=== PATIENT | male | born 1985 | race African-American/Black ===

== ENCOUNTER 2018-06-17 23:47 | Emergency (ER) | payer OTHER ==
[2018-06-18] MEDS ORDERED: LEVETIRACETAM 1000 MG (PMX) 100 ML IVPB (00:30)
[2018-06-18 01:11] LABS: ADD MAN DIFF? NO
[2018-06-18 01:13] LABS: BASOPHIL # 0.1 10^3/ul (0.0-0.1); EOSINOPHILS # 0.1 10^3/ul (0.0-0.5); EOSINOPHILS % 1.2 % (0.0-7.0); HEMATOCRIT 31.9 % (42.0-52.0); HEMOGLOBIN 10.3 g/dl (14.0-18.0); LYMPHOCYTES % 40.3 % (15.0-51.0); MEAN CORPUSCULAR HGB CONC 32.3 g/dl (32.0-37.0); MEAN CORPUSCULAR VOLUME 77.4 fl (82.0-101.0); MONOCYTE # 0.2 10^3/ul (0.3-0.9); MONOCYTES % 3.7 % (0.0-11.0); NEUTROPHIL # 2.6 10^3/ul (1.6-7.5); NEUTROPHILS % 53.6 % (39.0-77.0); PLATELET COUNT 345 10^3/UL (140-415); RED BLOOD COUNT 4.12 10^6/ul (4.70-6.10); RED CELL DISTRIBUTION WIDTH 18.7 % (11.5-14.5)
[2018-06-18 01:13] LABS: WHITE BLOOD COUNT 4.9 10^3/ul (4.8-10.8)
[2018-06-18] MEDS: OXYBUTYNIN (XL) 5 MG TAB PO (01:44)
[2018-06-18 01:45] LABS: ALANINE AMINOTRANSFERASE 19 IU/L (13-69); ALBUMIN 4.5 g/dl (3.3-4.9); ALBUMIN/GLOBULIN RATIO 1.25; ALKALINE PHOSPHATASE 63 IU/L (42-121); ANION GAP 15 (8-16); ASPARTATE AMINO TRANSFERASE 42 IU/L (15-46); BILIRUBIN,INDIRECT 0.5 mg/dl (0-1.1); BILIRUBIN,TOTAL 0.5 mg/dl (0.2-1.3); BLOOD UREA NITROGEN 8 mg/dl (7-20); CALCIUM 8.7 mg/dl (8.4-10.2); CARBON DIOXIDE 24 mmol/L (21-31); CHLORIDE 102 mmol/L (97-110); CREATININE 0.53 mg/dl (0.61-1.24); GLUCOSE 89 mg/dl (70-220); LIPASE 134 U/L (23-300); POTASSIUM 4.2 mmol/L (3.5-5.1); SODIUM 137 mmol/L (135-144); TOTAL PROTEIN 8.1 g/dl (6.1-8.1)
[2018-06-18] MEDS: SOD CHLORIDE 0.9% 1,000 ML IV (01:57)
[2018-06-18] MEDS: LEVETIRACETAM 500 MG TAB PO (01:57)
[2018-06-18 02:21] LABS: URINE BLOOD (Dip) POC Trace-lysed (NEGATIVE); URINE GLUCOSE (Dip) POC Negative (NEGATIVE); URINE KETONES (Dip) POC Negative (NEGATIVE); URINE LEUKOCYTE EST (Dip) POC 1+ (NEGATIVE); URINE NITRITE (Dip) POC Positive (NEGATIVE); URINE TOTAL PROTEIN POC Trace (NEGATIVE)
[2018-06-18 02:50] LABS: AMPHETAMINE/METHAMPHETAMINE Negative (NEGATIVE); BARBITURATES Negative (NEGATIVE); BENZODIAZEPINES Negative (NEGATIVE); CANNABINOIDS Negative (NEGATIVE); COCAINE Negative (NEGATIVE); OPIATES Negative (NEGATIVE)
[2018-06-18] MEDS: NITROFURANTOIN (SR) 100 MG CAP PO (05:12)
== END 2018-06-18 07:10 | disposition home or self-care (01) ==
LOC: E/R 23:47
DX: G40.909 Epilepsy, unspecified, not intractable, without status epilepticus (principal); N39.0 Urinary tract infection, site not specified; F10.10 Alcohol abuse, uncomplicated; D64.9 Anemia, unspecified; R40.2142 Coma scale, eyes open, spontaneous, at arrival to emergency department; R40.2252 Coma scale, best verbal response, oriented, at arrival to emergency department; R40.2362 Coma scale, best motor response, obeys commands, at arrival to emergency department
CPT/HCPCS: 36415; 71045; 80053; 80307; 81003; 83690; 85025; 87086; 99284-25

== ENCOUNTER 2019-07-14 20:57 | Inpatient (IN) | payer OTHER ==
[2019-07-14 21:54] LABS: ADD MAN DIFF? NO
[2019-07-14 21:57] LABS: BASOPHIL # 0.1 10^3/ul (0.0-0.1); BASOPHILS % 0.7 % (0.0-2.0); EOSINOPHILS # 0.1 10^3/ul (0.0-0.5); EOSINOPHILS % 0.6 % (0.0-7.0); HEMATOCRIT 32.7 % (42.0-52.0); HEMOGLOBIN 10.5 g/dl (14.0-18.0); LYMPHOCYTES # 1.6 10^3/ul (0.8-2.9); LYMPHOCYTES % 18.7 % (15.0-51.0); MEAN CORPUSCULAR HEMOGLOBIN 27.9 pg (29.0-33.0); MEAN CORPUSCULAR HGB CONC 32.1 g/dl (32.0-37.0); MEAN CORPUSCULAR VOLUME 86.7 fl (82.0-101.0); MEAN PLATELET VOLUME 9.5 fl (7.4-10.4); MONOCYTE # 0.6 10^3/ul (0.3-0.9); MONOCYTES % 6.5 % (0.0-11.0); NEUTROPHIL # 6.2 10^3/ul (1.6-7.5); NEUTROPHILS % 72.8 % (39.0-77.0); PLATELET COUNT 321 10^3/UL (140-415); RED BLOOD COUNT 3.77 10^6/ul (4.70-6.10); RED CELL DISTRIBUTION WIDTH 18.5 % (11.5-14.5)
[2019-07-14 21:57] LABS: WHITE BLOOD COUNT 8.5 10^3/ul (4.8-10.8)
[2019-07-14 21:58] LABS: ADD UMIC YES; UR ASCORBIC ACID NEGATIVE (NEGATIVE); UR BACTERIA MODERATE /HPF (NONE SEEN); UR BILIRUBIN (Dip) NEGATIVE (NEGATIVE); UR BLOOD (Dip) 2+ mg/dL (NEGATIVE); UR CLARITY CLOUDY (CLEAR); UR COLOR YELLOW (YELLOW); UR GLUCOSE (Dip) NEGATIVE (NEGATIVE); UR KETONES (Dip) NEGATIVE (NEGATIVE); UR LEUKOCYTE ESTERASE (Dip) 3+ Leu/ul (NEGATIVE); UR NITRITE (Dip) POSITIVE (NEGATIVE); UR RBC 4 /HPF (0-5); UR SPECIFIC GRAVITY (Dip) 1.004 (1.003-1.030); UR SQUAMOUS EPITHELIAL CELL FEW /HPF (FEW); UR TOTAL PROTEIN (Dip) 1+ mg/dl (NEGATIVE); UR UROBILINOGEN (Dip) NEGATIVE (NEGATIVE); UR WBC 29 /HPF (0-5)
[2019-07-14] MEDS: CEFEPIME 2GM/50 ML (PMX) 50 ML IVPB (22:11)
[2019-07-14] MEDS: SODIUM CHLORIDE 0.9% 1L BAG IV* (22:11)
[2019-07-14 22:16] LABS: ALANINE AMINOTRANSFERASE 39 IU/L (13-69); ALBUMIN/GLOBULIN RATIO 1.21; ALKALINE PHOSPHATASE 73 IU/L (42-121); ANION GAP 16 (5-13); ASPARTATE AMINO TRANSFERASE 25 IU/L (15-46); BILIRUBIN,INDIRECT 0.7 mg/dl (0-1.1); BILIRUBIN,TOTAL 0.7 mg/dl (0.2-1.3); BLOOD UREA NITROGEN 10 mg/dl (7-20); CALCIUM 9.1 mg/dl (8.4-10.2); CARBON DIOXIDE 20 mmol/L (21-31); CHLORIDE 97 mmol/L (97-110); CREATININE 0.61 mg/dl (0.61-1.24); Estimated GFR > 60 mL/min (>60); GLUCOSE 88 mg/dl (70-220); SODIUM 133 mmol/L (135-144); TOTAL PROTEIN 7.3 g/dl (6.1-8.1)
[2019-07-14 22:19] LABS: POTASSIUM 2.8 mmol/L (3.5-5.1)
[2019-07-14 22:27] LABS: TROPONIN-I < 0.012 ng/ml (0.000-0.120)
[2019-07-14 22:30] LABS: INR 1.15; PROTIME 14.8 Sec (11.9-14.9); PT RATIO 1.2
[2019-07-14] MEDS ORDERED: ONDANSETRON 4 MG INJ IV ×2 (22:30→23:00)
[2019-07-14] MEDS ORDERED: ACETAMINOPHEN 325 MG TAB PO (22:30)
[2019-07-14 22:31] LABS: PARTIAL THROMBOPLASTIN TIME 44.4 Sec (23.0-35.0)
[2019-07-14] MEDS: POTASSIUM CHLORIDE (SR) 20 MEQ TAB PO (22:32)
[2019-07-14] MEDS: ONDANSETRON (ODT) 4 MG TAB ODT (22:33)
[2019-07-14] MEDS: HYDROCODONE/APAP (10/325) TAB PO (22:33)
[2019-07-14] MEDS: VANCOMYCIN 1 GM (PMX) 250 ML IVPB (22:52)
[2019-07-14] MEDS ORDERED: BISACODYL (EC) 5 MG TAB PO (23:00)
[2019-07-14] MEDS ORDERED: HYDROmorphONE 0.5 MG/0.5 ML SYG IV (23:00)
[2019-07-14] MEDS ORDERED: DOCUSATE SODIUM 100 MG CAP PO (23:00)
[2019-07-14] MEDS ORDERED: NACL 0.9% 3 ML SYG IV (23:00)
[2019-07-14] MEDS ORDERED: VANCOMYCIN IV PER PHARMACY XX (23:00)
[2019-07-14] MEDS: morphine 2 MG INJ IV (23:58)
[2019-07-15] MEDS: MAGNESIUM SULFATE 2 GM/50 ML 50 ML IVPB (01:03)
[2019-07-15] MEDS: FUROSEMIDE 40 MG INJ IV (01:35)
[2019-07-15] MEDS: HYDROCODONE/APAP (5/325) TAB PO ×3 (02:52→17:44)
[2019-07-15] MEDS: VANCOMYCIN 500 MG (PMX) 100 ML IVPB (03:23)
[2019-07-15] MEDS: ENOXAPARIN 100 MG/ML SYG SC ×3 (03:24→20:54)
[2019-07-15] MEDS: SOD CHLORIDE 0.9% 500 ML IV (03:28)
[2019-07-15] MEDS: morphine 2 MG INJ IV ×4 (04:15→16:25)
[2019-07-15 05:22] LABS: ADD MAN DIFF? NO
[2019-07-15 05:40] LABS: WHITE BLOOD COUNT 6.4 10^3/ul (4.8-10.8)
[2019-07-15 05:40] LABS: BASOPHILS % 0.6 % (0.0-2.0); EOSINOPHILS # 0.1 10^3/ul (0.0-0.5); EOSINOPHILS % 0.8 % (0.0-7.0); HEMOGLOBIN 9.4 g/dl (14.0-18.0); LYMPHOCYTES # 1.3 10^3/ul (0.8-2.9); LYMPHOCYTES % 19.9 % (15.0-51.0); MEAN CORPUSCULAR HEMOGLOBIN 28.2 pg (29.0-33.0); MEAN CORPUSCULAR HGB CONC 32.4 g/dl (32.0-37.0); MEAN CORPUSCULAR VOLUME 87.1 fl (82.0-101.0); MEAN PLATELET VOLUME 10.5 fl (7.4-10.4); MONOCYTE # 0.5 10^3/ul (0.3-0.9); NEUTROPHIL # 4.5 10^3/ul (1.6-7.5); NEUTROPHILS % 71.1 % (39.0-77.0); PLATELET COUNT 224 10^3/UL (140-415); RED BLOOD COUNT 3.33 10^6/ul (4.70-6.10); RED CELL DISTRIBUTION WIDTH 18.5 % (11.5-14.5)
[2019-07-15 05:46] LABS: IRON 28 ug/dl (35-150)
[2019-07-15 05:46] LABS: LACTIC ACID 1.2 mmol/L (0.5-2.0)
[2019-07-15 05:54] LABS: ALANINE AMINOTRANSFERASE 35 IU/L (13-69); ALBUMIN 3.1 g/dl (3.3-4.9); ALBUMIN/GLOBULIN RATIO 1.06; ALKALINE PHOSPHATASE 57 IU/L (42-121); ANION GAP 7 (5-13); ASPARTATE AMINO TRANSFERASE 28 IU/L (15-46); BILIRUBIN,INDIRECT 0.7 mg/dl (0-1.1); BILIRUBIN,TOTAL 0.7 mg/dl (0.2-1.3); BLOOD UREA NITROGEN 10 mg/dl (7-20); CARBON DIOXIDE 22 mmol/L (21-31); CHLORIDE 106 mmol/L (97-110); CREATININE 0.42 mg/dl (0.61-1.24); Estimated GFR > 60 mL/min (>60); GLUCOSE 101 mg/dl (70-220); POTASSIUM 3.8 mmol/L (3.5-5.1); SODIUM 135 mmol/L (135-144)
[2019-07-15 05:55] LABS: % IRON SATURATION 10 % SAT (22-52); TOTAL IRON BINDING CAPACITY 287 ug/dl (241-421)
[2019-07-15 06:53] LABS: FERRITIN 68.1 ng/ml (17.9-464.0)
[2019-07-15] MEDS: MEROPENEM 1 GM/50ML(PMX) 50 ML IVPB ×2 (08:27→21:00)
[2019-07-15] MEDS: VANCOMYCIN 1 GM 250 ML IVPB ×2 (09:29→16:25)
[2019-07-15] MEDS: OXYBUTYNIN 5 MG TAB PO ×2 (16:23→20:53)
[2019-07-15] MEDS: BALSAM PERU/CASTOR OIL 60 GM TUBE TOP (20:55)
[2019-07-15] MEDS: LEVOFLOXACIN 750 MG TABLET PO (22:10)
[2019-07-16] MEDS: HYDROCODONE/APAP (5/325) TAB PO ×4 (00:06→21:03)
[2019-07-16] MEDS: VANCOMYCIN 1 GM 250 ML IVPB ×2 (01:00→09:00)
[2019-07-16] MEDS: MEROPENEM 1 GM/50ML(PMX) 50 ML IVPB ×2 (09:00→20:50)
[2019-07-16] MEDS: OXYBUTYNIN 5 MG TAB PO ×2 (09:03→21:03)
[2019-07-16] MEDS: BALSAM PERU/CASTOR OIL 60 GM TUBE TOP ×2 (09:06→21:00)
[2019-07-16] MEDS: ENOXAPARIN 100 MG/ML SYG SC ×2 (09:09→20:50)
[2019-07-16] MEDS: ACETAMINOPHEN 325 MG TAB PO (11:33)
[2019-07-16] MEDS: morphine 2 MG INJ IV ×2 (17:31→21:56)
[2019-07-17] MEDS: morphine 2 MG INJ IV ×5 (02:00→21:43)
[2019-07-17] MEDS: HYDROCODONE/APAP (5/325) TAB PO ×3 (05:44→20:07)
[2019-07-17 05:45] LABS: ADD MAN DIFF? NO
[2019-07-17 05:57] LABS: BASOPHILS % 0.8 % (0.0-2.0); EOSINOPHILS # 0.1 10^3/ul (0.0-0.5); EOSINOPHILS % 1.3 % (0.0-7.0); HEMATOCRIT 33.4 % (42.0-52.0); HEMOGLOBIN 10.4 g/dl (14.0-18.0); LYMPHOCYTES # 1.6 10^3/ul (0.8-2.9); LYMPHOCYTES % 29.1 % (15.0-51.0); MEAN CORPUSCULAR HEMOGLOBIN 27.7 pg (29.0-33.0); MEAN CORPUSCULAR HGB CONC 31.1 g/dl (32.0-37.0); MEAN CORPUSCULAR VOLUME 88.8 fl (82.0-101.0); MEAN PLATELET VOLUME 10.3 fl (7.4-10.4); MONOCYTE # 0.5 10^3/ul (0.3-0.9); MONOCYTES % 9.2 % (0.0-11.0); NEUTROPHIL # 3.1 10^3/ul (1.6-7.5); NEUTROPHILS % 58.5 % (39.0-77.0); PLATELET COUNT 275 10^3/UL (140-415); RED BLOOD COUNT 3.76 10^6/ul (4.70-6.10); RED CELL DISTRIBUTION WIDTH 19.8 % (11.5-14.5)
[2019-07-17 05:57] LABS: WHITE BLOOD COUNT 5.3 10^3/ul (4.8-10.8)
[2019-07-17 06:30] LABS: ANION GAP 7 (5-13); BLOOD UREA NITROGEN 14 mg/dl (7-20); CALCIUM 9.4 mg/dl (8.4-10.2); CARBON DIOXIDE 27 mmol/L (21-31); CHLORIDE 105 mmol/L (97-110); CREATININE 0.45 mg/dl (0.61-1.24); Estimated GFR > 60 mL/min (>60); GLUCOSE 98 mg/dl (70-220); POTASSIUM 3.9 mmol/L (3.5-5.1); SODIUM 139 mmol/L (135-144)
[2019-07-17] MEDS: MEROPENEM 1 GM/50ML(PMX) 50 ML IVPB (08:39)
[2019-07-17] MEDS: OXYBUTYNIN 5 MG TAB PO ×2 (08:40→20:07)
[2019-07-17] MEDS: BALSAM PERU/CASTOR OIL 60 GM TUBE TOP ×2 (08:40→20:09)
[2019-07-17] MEDS: ENOXAPARIN 100 MG/ML SYG SC (08:42)
[2019-07-17] MEDS ORDERED: VANCOMYCIN IV PER PHARMACY XX (20:00)
[2019-07-17] MEDS: ENOXAPARIN 80 MG/0.8 ML SYG SC (20:08)
[2019-07-17] MEDS: MEROPENEM 500MG/50 ML (PMX) 50 ML IVPB (21:03)
[2019-07-17] MEDS: VANCOMYCIN HCL 1.75 GM in SOD CHLORIDE 0.9% 500 ML IVPB (22:13)
[2019-07-18] MEDS: morphine 2 MG INJ IV ×5 (03:07→20:52)
[2019-07-18] MEDS: MEROPENEM 500MG/50 ML (PMX) 50 ML IVPB ×3 (05:02→21:57)
[2019-07-18 05:22] LABS: ADD MAN DIFF? NO
[2019-07-18 05:32] LABS: WHITE BLOOD COUNT 5.7 10^3/ul (4.8-10.8)
[2019-07-18 05:32] LABS: BASOPHILS % 0.7 % (0.0-2.0); EOSINOPHILS # 0.1 10^3/ul (0.0-0.5); EOSINOPHILS % 1.8 % (0.0-7.0); HEMATOCRIT 33.7 % (42.0-52.0); HEMOGLOBIN 10.5 g/dl (14.0-18.0); LYMPHOCYTES # 1.5 10^3/ul (0.8-2.9); LYMPHOCYTES % 26.5 % (15.0-51.0); MEAN CORPUSCULAR HEMOGLOBIN 28.2 pg (29.0-33.0); MEAN CORPUSCULAR HGB CONC 31.2 g/dl (32.0-37.0); MEAN CORPUSCULAR VOLUME 90.3 fl (82.0-101.0); MEAN PLATELET VOLUME 10.4 fl (7.4-10.4); MONOCYTE # 0.5 10^3/ul (0.3-0.9); MONOCYTES % 8.1 % (0.0-11.0); NEUTROPHIL # 3.5 10^3/ul (1.6-7.5); NEUTROPHILS % 61.8 % (39.0-77.0); PLATELET COUNT 268 10^3/UL (140-415); RED BLOOD COUNT 3.73 10^6/ul (4.70-6.10); RED CELL DISTRIBUTION WIDTH 19.4 % (11.5-14.5)
[2019-07-18 05:51] LABS: ANION GAP 6 (5-13); BLOOD UREA NITROGEN 14 mg/dl (7-20); CALCIUM 9.3 mg/dl (8.4-10.2); CARBON DIOXIDE 29 mmol/L (21-31); CHLORIDE 105 mmol/L (97-110); CREATININE 0.46 mg/dl (0.61-1.24); Estimated GFR > 60 mL/min (>60); GLUCOSE 116 mg/dl (70-220); POTASSIUM 4.6 mmol/L (3.5-5.1); SODIUM 140 mmol/L (135-144)
[2019-07-18] MEDS: VANCOMYCIN 1 GM 250 ML IVPB ×2 (05:57→14:27)
[2019-07-18] MEDS: OXYBUTYNIN 5 MG TAB PO ×2 (08:12→20:23)
[2019-07-18] MEDS: BALSAM PERU/CASTOR OIL 60 GM TUBE TOP ×2 (08:12→20:52)
[2019-07-18] MEDS: ENOXAPARIN 80 MG/0.8 ML SYG SC ×2 (08:14→20:24)
[2019-07-18] MEDS: HYDROCODONE/APAP (5/325) TAB PO ×3 (09:20→21:58)
[2019-07-18] MEDS: ACETAMINOPHEN 325 MG TAB PO (13:51)
[2019-07-19] MEDS: VANCOMYCIN 1 GM 250 ML IVPB ×3 (00:04→16:34)
[2019-07-19] MEDS ORDERED: VANCOMYCIN 1 GM 250 ML IVPB (03:00)
[2019-07-19] MEDS: HYDROCODONE/APAP (5/325) TAB PO ×3 (04:21→18:32)
[2019-07-19] MEDS: MEROPENEM 500MG/50 ML (PMX) 50 ML IVPB ×3 (05:00→21:58)
[2019-07-19 06:08] LABS: ADD MAN DIFF? NO
[2019-07-19] MEDS: morphine 2 MG INJ IV ×4 (06:20→20:19)
[2019-07-19 06:27] LABS: WHITE BLOOD COUNT 7.2 10^3/ul (4.8-10.8)
[2019-07-19 06:27] LABS: BASOPHIL # 0.1 10^3/ul (0.0-0.1); BASOPHILS % 0.8 % (0.0-2.0); EOSINOPHILS # 0.2 10^3/ul (0.0-0.5); EOSINOPHILS % 2.1 % (0.0-7.0); HEMATOCRIT 36.7 % (42.0-52.0); HEMOGLOBIN 11.4 g/dl (14.0-18.0); LYMPHOCYTES # 2.3 10^3/ul (0.8-2.9); LYMPHOCYTES % 32.1 % (15.0-51.0); MEAN CORPUSCULAR HEMOGLOBIN 27.6 pg (29.0-33.0); MEAN CORPUSCULAR HGB CONC 31.1 g/dl (32.0-37.0); MEAN CORPUSCULAR VOLUME 88.9 fl (82.0-101.0); MEAN PLATELET VOLUME 10.3 fl (7.4-10.4); MONOCYTE # 0.8 10^3/ul (0.3-0.9); MONOCYTES % 11.6 % (0.0-11.0); NEUTROPHIL # 3.7 10^3/ul (1.6-7.5); NEUTROPHILS % 51.6 % (39.0-77.0); PLATELET COUNT 273 10^3/UL (140-415); RED BLOOD COUNT 4.13 10^6/ul (4.70-6.10); RED CELL DISTRIBUTION WIDTH 19.1 % (11.5-14.5)
[2019-07-19 06:48] LABS: ANION GAP 11 (5-13); BLOOD UREA NITROGEN 11 mg/dl (7-20); CALCIUM 9.9 mg/dl (8.4-10.2); CARBON DIOXIDE 26 mmol/L (21-31); CHLORIDE 103 mmol/L (97-110); Estimated GFR > 60 mL/min (>60); GLUCOSE 101 mg/dl (70-220); POTASSIUM 4.6 mmol/L (3.5-5.1); SODIUM 140 mmol/L (135-144)
[2019-07-19] MEDS: OXYBUTYNIN 5 MG TAB PO ×2 (08:19→20:20)
[2019-07-19] MEDS: ACETAMINOPHEN 325 MG TAB PO ×2 (08:20→16:39)
[2019-07-19] MEDS: BALSAM PERU/CASTOR OIL 60 GM TUBE TOP ×2 (08:20→20:25)
[2019-07-19] MEDS: ENOXAPARIN 80 MG/0.8 ML SYG SC ×2 (08:23→20:21)
[2019-07-19] MEDS: FERROUS GLUCONATE (EC) 325 MG TAB PO (20:20)
[2019-07-20] MEDS: VANCOMYCIN 1 GM 250 ML IVPB ×3 (00:12→15:46)
[2019-07-20] MEDS: HYDROCODONE/APAP (5/325) TAB PO ×3 (04:13→18:13)
[2019-07-20] MEDS: morphine 2 MG INJ IV ×4 (05:15→21:28)
[2019-07-20] MEDS: MEROPENEM 500MG/50 ML (PMX) 50 ML IVPB ×3 (05:15→21:28)
[2019-07-20 05:33] LABS: ADD MAN DIFF? NO
[2019-07-20 05:38] LABS: BASOPHIL # 0.1 10^3/ul (0.0-0.1); EOSINOPHILS # 0.2 10^3/ul (0.0-0.5); EOSINOPHILS % 2.7 % (0.0-7.0); HEMATOCRIT 35.1 % (42.0-52.0); LYMPHOCYTES # 2.1 10^3/ul (0.8-2.9); LYMPHOCYTES % 35.4 % (15.0-51.0); MEAN CORPUSCULAR HEMOGLOBIN 27.9 pg (29.0-33.0); MEAN CORPUSCULAR HGB CONC 31.3 g/dl (32.0-37.0); MEAN CORPUSCULAR VOLUME 89.1 fl (82.0-101.0); MEAN PLATELET VOLUME 10.5 fl (7.4-10.4); MONOCYTE # 0.8 10^3/ul (0.3-0.9); MONOCYTES % 13.4 % (0.0-11.0); NEUTROPHIL # 2.7 10^3/ul (1.6-7.5); NEUTROPHILS % 44.8 % (39.0-77.0); PLATELET COUNT 236 10^3/UL (140-415); RED BLOOD COUNT 3.94 10^6/ul (4.70-6.10); RED CELL DISTRIBUTION WIDTH 18.9 % (11.5-14.5)
[2019-07-20 05:38] LABS: WHITE BLOOD COUNT 5.9 10^3/ul (4.8-10.8)
[2019-07-20 06:04] LABS: ANION GAP 10 (5-13); BLOOD UREA NITROGEN 12 mg/dl (7-20); CALCIUM 9.8 mg/dl (8.4-10.2); CARBON DIOXIDE 25 mmol/L (21-31); CHLORIDE 104 mmol/L (97-110); CREATININE 0.39 mg/dl (0.61-1.24); Estimated GFR > 60 mL/min (>60); GLUCOSE 95 mg/dl (70-220); MAGNESIUM 2.1 mg/dl (1.7-2.5); PHOSPHORUS 4.5 mg/dl (2.5-4.9); POTASSIUM 4.5 mmol/L (3.5-5.1); SODIUM 139 mmol/L (135-144)
[2019-07-20] MEDS: ACETAMINOPHEN 325 MG TAB PO (06:05)
[2019-07-20] MEDS: ENOXAPARIN 80 MG/0.8 ML SYG SC ×2 (09:04→20:05)
[2019-07-20] MEDS: FERROUS GLUCONATE (EC) 325 MG TAB PO ×2 (09:05→20:04)
[2019-07-20] MEDS: OXYBUTYNIN 5 MG TAB PO ×2 (09:05→20:04)
[2019-07-20] MEDS: BALSAM PERU/CASTOR OIL 60 GM TUBE TOP ×2 (09:06→20:06)
[2019-07-21] MEDS: VANCOMYCIN 1 GM 250 ML IVPB ×2 (00:17→09:03)
[2019-07-21] MEDS: HYDROCODONE/APAP (5/325) TAB PO ×4 (00:17→21:14)
[2019-07-21] MEDS: morphine 2 MG INJ IV ×4 (03:08→19:48)
[2019-07-21] MEDS: MEROPENEM 500MG/50 ML (PMX) 50 ML IVPB ×3 (05:47→21:14)
[2019-07-21] MEDS: ACETAMINOPHEN 325 MG TAB PO ×2 (05:48→22:53)
[2019-07-21] MEDS: BALSAM PERU/CASTOR OIL 60 GM TUBE TOP ×2 (08:55→21:23)
[2019-07-21] MEDS: OXYBUTYNIN 5 MG TAB PO ×2 (08:55→21:13)
[2019-07-21] MEDS: FERROUS GLUCONATE (EC) 325 MG TAB PO ×2 (08:55→21:14)
[2019-07-21] MEDS: ENOXAPARIN 80 MG/0.8 ML SYG SC ×2 (08:56→21:13)
[2019-07-22] MEDS: morphine 2 MG INJ IV ×5 (02:12→22:18)
[2019-07-22] MEDS: MEROPENEM 500MG/50 ML (PMX) 50 ML IVPB ×3 (05:24→22:18)
[2019-07-22] MEDS: FERROUS GLUCONATE (EC) 325 MG TAB PO ×2 (08:09→20:22)
[2019-07-22] MEDS: OXYBUTYNIN 5 MG TAB PO ×2 (08:09→20:22)
[2019-07-22] MEDS: ENOXAPARIN 80 MG/0.8 ML SYG SC (08:10)
[2019-07-22] MEDS: BALSAM PERU/CASTOR OIL 60 GM TUBE TOP ×2 (08:17→20:33)
[2019-07-22 08:50] LABS: ADD MAN DIFF? NO
[2019-07-22 08:52] LABS: BASOPHIL # 0.1 10^3/ul (0.0-0.1); BASOPHILS % 1.5 % (0.0-2.0); EOSINOPHILS # 0.2 10^3/ul (0.0-0.5); EOSINOPHILS % 3.8 % (0.0-7.0); HEMATOCRIT 39.4 % (42.0-52.0); HEMOGLOBIN 12.1 g/dl (14.0-18.0); LYMPHOCYTES # 1.7 10^3/ul (0.8-2.9); LYMPHOCYTES % 43.8 % (15.0-51.0); MEAN CORPUSCULAR HEMOGLOBIN 27.3 pg (29.0-33.0); MEAN CORPUSCULAR HGB CONC 30.7 g/dl (32.0-37.0); MEAN CORPUSCULAR VOLUME 88.9 fl (82.0-101.0); MEAN PLATELET VOLUME 10.5 fl (7.4-10.4); MONOCYTE # 0.4 10^3/ul (0.3-0.9); MONOCYTES % 8.8 % (0.0-11.0); NEUTROPHIL # 1.6 10^3/ul (1.6-7.5); NEUTROPHILS % 39.3 % (39.0-77.0); PLATELET COUNT 229 10^3/UL (140-415); RED BLOOD COUNT 4.43 10^6/ul (4.70-6.10); RED CELL DISTRIBUTION WIDTH 18.7 % (11.5-14.5)
[2019-07-22 09:10] LABS: ANION GAP 12 (5-13); BLOOD UREA NITROGEN 9 mg/dl (7-20); CALCIUM 10.1 mg/dl (8.4-10.2); CARBON DIOXIDE 23 mmol/L (21-31); CHLORIDE 104 mmol/L (97-110); Estimated GFR > 60 mL/min (>60); GLUCOSE 92 mg/dl (70-220); POTASSIUM 4.4 mmol/L (3.5-5.1); SODIUM 139 mmol/L (135-144)
[2019-07-22 09:11] LABS: PHOSPHORUS 4.6 mg/dl (2.5-4.9)
[2019-07-22 09:11] LABS: MAGNESIUM 1.9 mg/dl (1.7-2.5)
[2019-07-22] MEDS: HYDROCODONE/APAP (5/325) TAB PO ×2 (13:42→20:33)
[2019-07-22] MEDS: BACLOFEN 10 MG TAB PO ×2 (13:44→20:22)
[2019-07-22] MEDS: APIXABAN 5 MG TABLET PO (20:22)
[2019-07-23] MEDS: MEROPENEM 500MG/50 ML (PMX) 50 ML IVPB ×3 (05:59→21:11)
[2019-07-23] MEDS: morphine 2 MG INJ IV ×4 (06:06→21:37)
[2019-07-23] MEDS: HYDROCODONE/APAP (5/325) TAB PO ×3 (07:29→20:14)
[2019-07-23] MEDS: FERROUS GLUCONATE (EC) 325 MG TAB PO ×2 (08:27→20:01)
[2019-07-23] MEDS: OXYBUTYNIN 5 MG TAB PO ×2 (08:27→20:01)
[2019-07-23] MEDS: APIXABAN 5 MG TABLET PO ×2 (08:28→20:01)
[2019-07-23] MEDS: BACLOFEN 10 MG TAB PO ×3 (08:28→20:01)
[2019-07-23] MEDS: BALSAM PERU/CASTOR OIL 60 GM TUBE TOP ×2 (08:30→20:16)
[2019-07-23] MEDS: ACETAMINOPHEN 325 MG TAB PO (18:11)
[2019-07-23] MEDS ORDERED: MEROPENEM 1 GM/50ML(PMX) 50 ML IVPB (19:56)
[2019-07-24] MEDS: morphine 2 MG INJ IV ×3 (03:28→12:15)
[2019-07-24] MEDS: MEROPENEM 500MG/50 ML (PMX) 50 ML IVPB ×2 (05:15→13:58)
[2019-07-24 06:23] LABS: PHOSPHORUS 5.3 mg/dl (2.5-4.9)
[2019-07-24] MEDS: APIXABAN 5 MG TABLET PO (08:53)
[2019-07-24] MEDS: OXYBUTYNIN 5 MG TAB PO (08:53)
[2019-07-24] MEDS: FERROUS GLUCONATE (EC) 325 MG TAB PO (08:53)
[2019-07-24] MEDS: BACLOFEN 10 MG TAB PO ×2 (08:53→12:14)
[2019-07-24] MEDS: BALSAM PERU/CASTOR OIL 60 GM TUBE TOP (08:55)
[2019-07-24] MEDS: HYDROCODONE/APAP (5/325) TAB PO (10:05)
[2019-07-24] MEDS: ACETAMINOPHEN 325 MG TAB PO (14:10)
== END 2019-07-24 17:25 | disposition home health service (06) | DRG 699 ==
LOC: MS3 22:12 → E/R 20:57
PROC: 0T2BX0Z Change Drainage Device in Bladder, External Approach (ICD-10-PCS; principal; 2019-07-16)
DX: T83.511A Infection and inflammatory reaction due to indwelling urethral catheter, initial encounter (principal); G82.20 Paraplegia, unspecified; S82.391K Other fracture of lower end of right tibia, subsequent encounter for closed fracture with nonunion; E87.2 Acidosis; T14.8XXS Other injury of unspecified body region, sequela; Z86.718 Personal history of other venous thrombosis and embolism; Z79.01 Long term (current) use of anticoagulants; E87.6 Hypokalemia; R60.9 Edema, unspecified; D64.9 Anemia, unspecified; N39.0 Urinary tract infection, site not specified; B96.20 Unspecified Escherichia coli [E. coli] as the cause of diseases classified elsewhere; B96.89 Other specified bacterial agents as the cause of diseases classified elsewhere; Z16.12 Extended spectrum beta lactamase (ESBL) resistance; S70.921A Unspecified superficial injury of right thigh, initial encounter
CPT/HCPCS: 36415; 73590; 80048; 80053; 80202; 81001; 82728; 83036; 83540; 83605; 83735; 84100; 84484; 85025; 85610; 85730; 87040-91; 87075; 87081; 87086; 93005; 93970; 96374; 99217; 99285-25

== ENCOUNTER 2019-08-02 21:50 | Emergency (ER) | payer OTHER ==
[2019-08-03] MEDS ORDERED: POTASSIUM CHLORIDE (SR) 20 MEQ TAB PO (00:21)
== END 2019-08-03 00:44 | disposition home or self-care (01) ==
LOC: E/R 08-03 00:44
DX: R22.41 Localized swelling, mass and lump, right lower limb (principal); E87.6 Hypokalemia; D64.9 Anemia, unspecified; D72.819 Decreased white blood cell count, unspecified; Z87.891 Personal history of nicotine dependence; Z79.01 Long term (current) use of anticoagulants
CPT/HCPCS: 80048; 85025; 93970; 99284-25